=== PATIENT | male | born 1990 | race Caucasian/White ===

== ENCOUNTER 2018-05-02 18:49 | Emergency (ER) | payer OTHER ==
[2018-05-02 19:27] VITALS: BP 121/75; PULSE 105; TEMP 98; BMI 22.2
--- NOTE | 2018-05-02 19:46 | PDOC ---
History of Present Illness - General History Source: Patient Exam Limitations: No Limitations - History of Present Illness Initial Comments: The patient is 28 year old male, with no significant PMHx, who presents with 2 days of right upper leg pain. Patient states that 2 days ago he began experiencing what he describes as soreness in his upper front right thigh down to the level of his knee. He states that it progressively worsened and it now hurt to walk or put any kind of pressure on it and states that the front part of his right thigh is tender to touch. He states that 10-15 years ago he previously had a bout of cellulitis (from a possible bug bite) in his left hand that began as a small red bump and became very swollen. He was admitted at [facility] and placed on IV antibiotics. Denies taking any medication for the pain. Denies any fever. Denies any falls or unusual strenuous activity. 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 Denies smoking or illicit drug use. Social EtOH use. <Margaret Barraza - Last Filed: 05/02/18 22:48> <Do Robledo - Last Filed: 05/03/18 00:41> - General Chief Complaint: Redness To Affected Area Stated Complaint: RT UPPER LEG REDNESS Time Seen by Provider: 05/02/18 19:20 Past History <Margaret Barraza - Last Filed: 05/02/18 22:48> - Past Medical History COPD: No - Suicide/Smoking/Psychosocial Hx Smoking History: Never smoked Have you smoked in the past 12 months: No Information on smoking cessation initiated: No Hx Alcohol Use: Yes (SOCIAL) Drug/Substance Use Hx: No <Do Robledo - Last Filed: 05/03/18 00:41> - Past Medical History Allergies/Adverse Reactions: Allergies Allergy/AdvReac Type Severity Reaction Status Date / Time No Known Allergies Allergy Verified 05/02/18 18:51 Home Medications: Ambulatory Orders Amox-Tr/K Cl [Augmentin - 875Mg Tablet] 1 tab PO BID #14 tablet 05/02/18 Review of Systems - Review of Systems Comments:: GENERAL/CONSTITUTIONAL: No fever or chills. No weakness. HEAD, EYES, EARS, NOSE AND THROAT: No change in vision. No ear pain or discharge. No sore throat. CARDIOVASCULAR: No chest pain or shortness of breath. RESPIRATORY: No cough, wheezing, or hemoptysis. GASTROINTESTINAL: No nausea, vomiting, diarrhea or constipation. GENITOURINARY: No dysuria, frequency, or change in urination. MUSCULOSKELETAL: +right thigh muscle pain and swelling. No joint pain. No neck or back pain. SKIN: +minimal scattered redness on upper right thigh NEUROLOGIC: No headache, vertigo, loss of consciousness, or change in strength/ sensation. ENDOCRINE: No increased thirst. No abnormal weight change. HEMATOLOGIC/LYMPHATIC: No anemia, easy bleeding, or history of blood clots. ALLERGIC/IMMUNOLOGIC: No hives or skin allergy. <Margaret Barraza - Last Filed: 05/02/18 22:48> *Physical Exam - Vital Signs Last Vital Signs Temp Pulse Resp BP Pulse Ox 98 F 105 H 20 121/75 97 05/02/18 18:50 05/02/18 18:50 05/02/18 18:50 05/02/18 18:50 05/02/18 18:50 - Physical Exam Comments: GENERAL: Awake, alert, and fully oriented, in no acute distress HEAD: No signs of trauma EYES: PERRLA, EOMI, sclera anicteric, conjunctiva clear ENT: Hearing grossly normal, nares patent. Moist mucosa NECK: Normal ROM, supple, no lymphadenopathy, JVD, or masses LUNGS: Breath sounds equal, clear to auscultation bilaterally. No wheezes, and no crackles HEART: Regular rate and rhythm, normal S1 and S2, no murmurs, rubs or gallops ABDOMEN: Soft, nontender, normoactive bowel sounds. No guarding, no rebound. No masses EXTREMITIES:Right lower extremity moderate edema of the anterior aspect of the upper leg. Moderate tenderness of the quadricep muscle. Pain in the anterior thigh with passive and active extension of the knee. No clubbing or cyanosis. No cords. NEUROLOGICAL: Cranial nerves II through XII grossly intact. Normal speech, normal gait SKIN: Overlying skin of anterior right thigh has an area of minimal scattered erythema. No obvious open lesions, crepitus, fluctuance. No lymphadenopathy palpated in inguinal area. No lymphangitic streaking evident. Distal extremities in lower leg appear normal. Warm, Dry, normal turgor. 05/02/18 22:48 <Margaret Barraza - Last Filed: 05/02/18 22:48> - Vital Signs Last Vital Signs Temp Pulse Resp BP Pulse Ox 98 F 105 H 20 121/75 97 05/02/18 18:50 05/02/18 18:50 05/02/18 18:50 05/02/18 18:50 05/02/18 18:50 <Do Robledo - Last Filed: 05/03/18 00:41> Moderate Sedation - Procedure Monitoring Vital Signs: Procedure Monitoring Vital Signs Temperature 98 F 05/02/18 18:50 Pulse Rate 105 H 05/02/18 18:50 Respiratory Rate 20 05/02/18 18:50 Blood Pressure 121/75 05/02/18 18:50 O2 Sat by Pulse Oximetry (%) 97 05/02/18 18:50 <Margaret Barraza - Last Filed: 05/02/18 22:48> - Procedure Monitoring Vital Signs: Procedure Monitoring Vital Signs Temperature 98 F 05/02/18 18:50 Pulse Rate 105 H 05/02/18 18:50 Respiratory Rate 20 05/02/18 18:50 Blood Pressure 121/75 05/02/18 18:50 O2 Sat by Pulse Oximetry (%) 97 05/02/18 18:50 <Do Robledo - Last Filed: 05/03/18 00:41> ED Treatment Course - LABORATORY CBC & Chemistry Diagram: 05/02/18 20:14 05/02/18 20:14 <Margaret Barraza - Last Filed: 05/02/18 22:48> - LABORATORY CBC & Chemistry Diagram: 05/02/18 20:14 05/02/18 20:14 <Do Robledo - Last Filed: 05/03/18 00:41> Medical Decision Making - Medical Decision Making Documentation has been prepared under my direction and personally reviewed by me in its entirety. I attest that this documented accurately reflects all work, treatment, procedures and medical decision making performed by me. As noted above, this otherwise healthy 28-year-old man presents with a few day history of progressive right thigh pain and swelling. 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 Patient has had no fever or chills and no skin breakage in the area of pain and swelling. Of note, patient had cellulitis of the left hand approximately 10 years ago, requiring hospitalization for IV antibiotics. He has had no interim cellulitis or other infectious issues. Exam as noted. Because of the tenderness and edema of the right quadriceps muscle, myositis/ fasciitis possible (although patient has no immunocompromised and does not appear to be at risk for soft tissue infection, other than having one previous episode of cellulitis) Laboratory evaluation including CBC/chemistry profile/UA/lactic acid/CRP are essentially normal. Unlikely that deep soft tissue infection would be present in light of normal laboratory values. Patient given Toradol 30 mg IV for anti-inflammatory/analgesia affects. Augmentin 875/125 will be started in case early cellulitis is present. <Do Robledo - Last Filed: 05/03/18 00:41> *DC/Admit/Observation/Transfer - Attestations Scribe Attestion: 05/02/18 20:15 Documentation prepared by Margaret Barraza, acting as clinical medical transcriptionist for Do Robledo MD. <Margaret Barraza - Last Filed: 05/02/18 22:48> <Do Robledo - Last Filed: 05/03/18 00:41> Diagnosis at time of Disposition: Right thigh pain - Discharge Dispostion Disposition: HOME Condition at time of disposition: Stable - Prescriptions Prescriptions: Amox-Tr/K Cl [Augmentin - 875Mg Tablet] 1 tab PO BID #14 tablet - Patient Instructions Printed Discharge Instructions: DI for Leg Pain Additional Instructions: Rest; avoid any strenuous activity involving lower extremities for the next 5 days Augmentin 875/125 twice a day for one week; take with meals Can take ibuprofen/naproxen/acetaminophen as needed for pain Return to ER if you have severe pain/swelling/redness of the leg or fever Follow-up with your doctor within the next week - Post Discharge Activity Forms/Work/School Notes: Back to Work
[2018-05-02] MEDS ORDERED: SODIUM CHLORIDE 1,000 ML IV STA (19:57)
[2018-05-02 20:36] LABS: BASO % 0.6 % (0-2.0); EOS % 0.6 % (0-4.5); HEMATOCRIT 45.8 % (35.4-49); HEMOGLOBIN 14.7 GM/dl (11.7-16.9); MCH 29.1 pg (25.7-33.7); MCHC 32.2 g/dl (32.0-35.9); MEAN CELL VOLUME 90.7 fl (80-96); NEUT % 68.8 % (42.8-82.8); PLATELET COUNT 199 K/MM3 (134-434); RBC 5.06 M/mm3 (4.00-5.60); RDW 12.2 % (11.9-15.9); WHITE BLOOD COUNT 8.6 K/mm3 (4.0-10.8)
[2018-05-02 20:41] LABS: PH,URINE 5.5 (4.5-8); URINE APPEARANCE Clear; URINE BILIRUBIN Negative (NEGATIVE); URINE COLOR Yellow; URINE GLUCOSE (UA) Negative (NEGATIVE); URINE KETONE Negative (NEGATIVE); URINE LEUK ESTERASE Negative (NEGATIVE); URINE NITRITE Negative (NEGATIVE); URINE PROTEIN Negative (NEGATIVE); URINE UROBILINOGEN 0.2 (0.2-1.0)
[2018-05-02 20:55] LABS: ALBUMIN 4.6 g/dl (3.5-5.0); ALK PHOS 85 U/L (32-92); ANION GAP 12 MMOL/L (8-16); BILIRUBIN,TOTAL 0.5 mg/dl (0.2-1.0); BLOOD UREA NITROGEN 12 mg/dl (7-18); CALCIUM 9.5 mg/dl (8.4-10.2); CHLORIDE 103 mmol/L (98-107); CO2 23 mmol/L (22-28); CREATININE 0.9 mg/dl (0.6-1.3); GLUCOSE,RANDOM 102 mg/dl (74-106); POTASSIUM 3.8 mmol/L (3.5-5.1); SGOT/AST 27 U/L (10-42); SGPT/ALT 25 U/L (10-40); SODIUM 138 mmol/L (136-145); TOT PROT 7.8 g/dl (6.4-8.3)
[2018-05-02] MEDS ORDERED: KETOROLAC TROMETHAMINE 30 MG/1 ML VIAL IVPUSH ONE (22:04)
[2018-05-02] MEDS ORDERED: KETOROLAC TROMETHAMINE 30 MG/1 ML VIAL ONE (22:05)
== END 2018-05-02 22:12 | disposition home or self-care (01) ==
LOC: FER 18:49
PROC: 3E033GC Introduction of Other Therapeutic Substance into Peripheral Vein, Percutaneous Approach (ICD-10-PCS; principal; 2018-05-02)
PROC: 3E0337Z Introduction of Electrolytic and Water Balance Substance into Peripheral Vein, Percutaneous Approach (ICD-10-PCS; 2018-05-02)
DX: M79.651 Pain in right thigh (principal)
CPT/HCPCS: 36415; 80053; 81003; 83605; 85025; 86140; 87040; 99282-25; J7030